=== PATIENT | male | born 1950 | race American Indian/Alaskan Native ===

== ENCOUNTER 2021-10-25 06:18 | Day surgery (SDC) | payer MEDICARE, OTHER ==
[~2021-10-25] VITALS: Ht 162.6 cm; Wt 73.0 kg
[~2021-10-25 06:18] MED LIST: AMLO10; ATOR20; Aspir 8181 MG; CARV25; CHLO25B; Fluocinonide15 GM; LISI20; METF500; MULVITA; Vitamin C100 M1; Vitamin D1000 UNI1; Voltaren100 GM
--- NOTE | 2021-10-25 12:57 | NUR ---
PT RETURNED TO RECOVERY ROOM IN BED. RIGHT RADIAL TR BAND SITE SOFT WITH NO HEMATOMA, NO PULSATILE BLEEDING AND WRIST BOARD IN PLACE. RIGHT FEMORAL GROIN SITE SOFT WITH NO HEMATOMA, NO PULSATILE BLEEDING AND INTACT DRESSING. LEFT GROIN SITE SOFT WITH EGG-SIZED HEMATOMA THAT WAS REDUCED IN [employer]POR[employer]VEL MANAGER AND DR ALEXANDRE AWARE. RLE DUSKY AND 3 SEC CAP REFILL UNABLE TO HEAR DOPPLER DP OR PT PULSE. PT DENIES CHEST PAIN, BUT C/O LOWER MID-BACK PAIN. DR ALEXANDRE INFORMED AND IS IN ROOM TO ACCESS PATIENT. DR ALEXANDRE AWARE PATIENT IS INTENDING TO DRIVE HOME TO [facility]. CALL LIGHT IN REACH. LEFT FEM GROIN SITE HAS INTACT DRESSING. SEE MD ORDERS.
--- NOTE | 2021-10-25 13:31 | NUR ---
NO CHANGES TO RIGHT RADIAL SITE, OR BILAT GROIN SITES.
--- NOTE | 2021-10-25 13:33 | NUR ---
PULSES STILL: LEFT PT DOPPLER AND RIGHT BIG TOE CAP REFILL THREE SECONDS. CALL LIGHT IN REACH.
--- NOTE | 2021-10-25 13:56 | NUR ---
NO CHANGES TO RIGHT RADIAL OR BILAT GROIN SITES. CAP REFILL ON RIGHT BIG TOE NOW < TWO SECONDS AND RLE SLIGHTLY LESS DUSKY. LEFT PT DOPPLER.
--- NOTE | 2021-10-25 14:41 | NUR ---
NO CHANGES TO RIGHT RADIAL TR BAND OR BILAT FEMORAL GROIN SITES. RLE DUSKNESS DIMINISHING AND PINK COLORATION MORE PROMINENT; RIGHT GREAT TOE CAP REFILL NOW ONE SECOND AND LEFT PT DOPPLER.
--- NOTE | 2021-10-25 15:00 | NUR ---
ATTEMPTED TO REMOVE AIR FROM TR BAND, HOWEVER BLED. REINFLATED TR BAND. NO FURTHER BLEEDING. NO HEMATOMA. PT BILATERAL FEMORAL SITES REMAIN STABLE. NO CHANGE. VSS. UPDATED S/O REGARDING PLAN OF CARE.
[2021-10-25] MEDS ORDERED: XARELTO20 MG PO (16:16)
[2021-10-25] MEDS ORDERED: CLOP75 PO (16:16)
--- NOTE | 2021-10-25 16:23 | NUR ---
ATTEMPTED TO REMOVE AIR AGAIN FROM TR BAND AND IT BLED. REINFLATED. NO FURTHER BLEEDING OR HEMATOMA. VSS. PT HEPARIN GTT STOPPED PER DR ALEXANDRE. PT BILATERAL FEMORAL SITES REMAIN CLEAR
--- NOTE | 2021-10-25 17:30 | NUR ---
2 CC AIR RELEASED FROM TR BAND, NO BLEEDING NOTED. NO C/O'S. LEFT FOOT WARM UPON PALPATION. PT STATES LEFT LEG FEELS UCH BETTER THAN WHEN HE CAME IN. R FOOT A LITTLE COOL, BUT HAS GOOD CMS.
--- NOTE | 2021-10-25 17:55 | NUR ---
HANDOFF REPORT GIVEN TO DEVAUGHN RN AND CALLED REGARDING DISCHARGE TIME.
--- NOTE | 2021-10-25 17:55 | NUR ---
ALL AIR HAS BEEN REMOVED FROM TR BAND AND NO BLEEDING NOTED.
--- NOTE | 2021-10-25 18:20 | NUR ---
PATIENT VERBALIZED UNDERSTANDING OF DISCHARGE INSTRUCTIONS AND PRECAUTIONS. GROIN SITES BILATERAL STABLE. RIGHT RADIAL SITE SOFT AND NONTENDER. NO BLEEDING, NO HEMATOMA. CLOTH DOT DRESSING PLACED AND WRIST BOARD PLACED. NO FURTHER QUESTIONS. PATIENT TAKEN TO WAITING CAR VIA WHEEL CHAIR BY SHELL SARKAR
== END 2021-10-25 18:20 | disposition home or self-care (01) ==
LOC: MHTC 06:18
DX: E11.51 Type 2 diabetes mellitus with diabetic peripheral angiopathy without gangrene (principal); I70.213 Atherosclerosis of native arteries of extremities with intermittent claudication, bilateral legs; E78.5 Hyperlipidemia, unspecified; I25.10 Atherosclerotic heart disease of native coronary artery without angina pectoris; I10 Essential (primary) hypertension; Z95.1 Presence of aortocoronary bypass graft; Z95.2 Presence of prosthetic heart valve; Z87.891 Personal history of nicotine dependence; Z79.84 Long term (current) use of oral hypoglycemic drugs
CPT/HCPCS: 74176; 76937; 85347; 99152; 99153; A9270; C1725; C1760; C1769; C1874; C1887; C1894; J1644; J2250; J3010; J7030; J7040; J7050; Q9967